=== PATIENT | female | born 2000 | race Caucasian/White ===

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

== ENCOUNTER 2022-04-23 12:33 | Emergency (ER) | payer BC ==
--- OUTSIDE RECORDS SUMMARY | 2022-04-23 12:36 | XMS REPORT | Continuity of Care Document ---
:2000 Author Organization [facility] t Address [address] [place] [address] Care Team Providers Name Role Phone CARRIE MIRANDA Primary Care Physician Unavailable CARRIE MIRANDA Attending Clinician Unavailable Carrie Miranda PA-C Attending Clinician Doctor Unassigned, [place] Attending Clinician Unavailable BHARATHI JOHNSON Attending Clinician Unavailable DANIELITO HUERTAS Attending Clinician Unavailable Danielito Keys Attending Clinician Unknown, Attending Attending Clinician Unavailable Bharathi Teran Attending Clinician Shellie Montilla Attending Clinician Shellie DE PAZ Attending Clinician Unavailable Annetta Bhatia Attending Clinician ANNETTA HOANG Attending Clinician Unavailable Pcp, Patient Does Not Have A Attending Clinician [phone] RICK LANDRY Attending Clinician Unavailable Lab, Adc Fam Pob I Attending Clinician Unavailable Jayleen Barrera Attending Clinician Lenora Huang RN Attending Clinician Unavailable MERY BAJWA Attending Clinician Unavailable Mery Villarreal Attending Clinician Shellie DE PAZ Admitting Clinician Unavailable Payers Payer Name Policy Type Policy Number Effective Date Expiration Date Shayan deluna [employer] [place] [id number] 2021 00:00:00 Problems Condition Condition Condition Status Onset Resolution Last Treating Co mments Source Name Details Category Date Date Treatment Clinician Date Dysuria Dysuria Disease Active 2021-0 Univers 24 ity of 00:00: [place] 00 [facility] Branch LGSIL on LGSIL on Disease Active 2019-03 Overview: Un lashell Pap smear Pap smear 03-23 [place] i ty of of cervix of cervix 00:00: [place] of this [place] 00 note Medical might be Branch different from the original. LGSIL 2019, ASCUS 2020, repeat pap smear in 2021 Other Other Disease Active 2019-03 [facility] general general 03-13 [place]y of counseling [place] and advice and advice 00 Me dical for for Branch contracept contracept edenilson edenilson management management Allergies, Adverse Reactions, Alerts Allergy Allergy Status Severity Reaction(s) Onset Inactive Treating Comm ents Source Name Type Date Date Clinician NO KNOWN Drug Active Univers ALLERGIE Class ity of S [facility] Social History Social Habit Start Date Stop Date Quantity Comments Source History of Cigarette Smoker Universi ty of tobacco use [facility] Exposure to 2022-03-28 2022-04-07 Not sure [facility] SARS-CoV-2 00:00:00 14:05:00 [facility] (event) [place] Alcohol intake 2021-12-20 2021-12-20 Ex-drinker University 00:00:00 00:00:00 (finding) [facility] Tobacco use and 2021-12-11 2021-12-11 Smokeless tobacco Un iversity of exposure 00:00:00 00:00:00 non-user [facility] Tobacco Comment 2021-12-11 2021-12-11 dips Universit y of 00:00:00 00:00:00 [facility] History SDOH 2020-01-12 2020-01-12 99 University o f Alcohol Frequency 00:00:00 00:00:00 [place] [facility] History SDOH 2020-01-12 2020-01-12 99 University o f Alcohol Std 00:00:00 00:00:00 [place] [facility] Dr[facility] History SDMD 2020-01-12 2020-01-12 99 [place] f Alcohol Binge 00:00:00 00:00:00 [facility] Alcohol Comment 2020-01-12 2020-01-12 socially Universit y of 00:00:00 00:00:00 [facility] Sex Assigned At [birth year] Universit y of 00:00:00 00:00:00 [facility] Smoking Status Start Date Stop Date Source Unknown if ever smoked General acute hospital Ex-smoker 2021-12-11 00:00:00 2021-12-11 00:00:00 [facility] Medications Ordered Filled Start Stop Current Ordering Indication Dosage Frequency Signature Comments Components Source Medication Medication Date Date Medication? Clinician (SIG) Name Name QUEtiapine Yes Take by [facility] 150 mg Tab 2-07 mouth. ity of 14:23: [address] Lamotrigine Yes Take by Uni vers (SUBVENITE 2-07 mouth. ity of STARTER, 14:23: [place] WHI Solution, 25 Medical KIT) 25 mg Branch (42) -100 mg (7) DsPk QUEtiapine Yes Take by [employer] [facility] 150 mg Tab 2-07 mouth. ity of 14:23: [address] Lamotrigine Yes Take by Uni vers (SUBVENITE 2-07 mouth. ity of STARTER, 14:23: [place] WHI Solution, 25 Medical KIT) 25 mg Branch (42) -100 mg (7) DsPk azithromyci 2021-03 Yes [id number] 250mg Z-[place] = Univers n 0-22 500 mg day ity of (ZITHROMAX) 00:00: 1, then Sam as 250 mg 00 250 mg Medical tablet days 2 to Branch 5. methylPREDN 2021-03 Yes [id number] Take by [facility] ISolone 0-22 mouth ity of (MEDROL, 00:00: SEE-INSTRU Sam as TROY,) 4 mg 00 CTIONS. Medica l tablets follow Branch package directions azithromyci 2021-03 Yes [id number] 250mg [place] = Univers n 0-22 500 mg day ity of (ZITHROMAX) 00:00: 1, then Sam as 250 mg 00 250 mg Medical tablet days 2 to Branch 5. methylPREDN 2021-03 Yes [id number] Take by Univers ISolone 0-22 mouth ity of (MEDROL, 00:00: SEE-INSTRU Sam as TROY,) 4 mg 00 CTIONS. Medica l tablets follow Branch package directions azithromyci 2021-03 Yes [id number] 250mg [place] = Univers n 0-22 500 mg day ity of (ZITHROMAX) 00:00: 1, then Sam as 250 mg 00 250 mg Medical tablet days 2 to Branch 5. methylPREDN 2021-03 Yes [id number] Take by Univers ISolone 0-22 mouth ity of (MEDROL, 00:00: SEE-INSTRU Sam as TROY,) 4 mg 00 CTIONS. Medica l tablets follow Branch package directions azithromyci 2021-03 Yes [id number] 250mg [place] = Univers n 0-22 500 mg day ity of (ZITHROMAX) 00:00: 1, then Sam as 250 mg 00 250 mg Medical tablet days 2 to Branch 5. methylPREDN 2021-03 Yes [id number] Take by Univers ISolone 0-22 mouth ity of (MEDROL, 00:00: SEE-INSTRU Sam as TROY,) 4 mg 00 CTIONS. Medica l tablets follow Branch package directions LOESTRIN FE 2021-03 Yes [id number] 1{tbl} Take 1 Univers 1 mg-20 mcg 0-13 tablet by ity of (21)/75 mg 00:00: mouth in Sam as (7) tablet 00 the Medical morning. [place] LOESTRIN FE 2021-03 Yes [id number] 1{tbl} Take 1 Univers 1 mg-20 mcg 0-13 tablet by ity of (21)/75 mg 00:00: mouth in Sam as (7) tablet 00 the Medical morning. [place] LOESTRIN FE 2021-03 Yes [id number] 1{tbl} Take 1 Univers 1 mg-20 mcg 0-13 tablet by ity of (21)/75 mg 00:00: mouth in Sam as (7) tablet 00 the Medical morning. [place] LOESTRIN FE 2021-03 Yes [id number] 1{tbl} Take 1 Univers 1 mg-20 mcg 0-13 tablet by ity of (21)/75 mg 00:00: mouth in Sam as (7) tablet 00 the Medical morning. Branch LOESTRIN FE 2021- Yes [id number] 1{tbl} Take 1 Univers 1 mg-20 mcg 0-13 tablet by ity of (21)/75 mg 00:00: mouth in Sam as (7) tablet 00 the Medical morning. Branch LOESTRIN FE 2021- Yes [id number] 1{tbl} Take 1 Univers 1 mg-20 mcg 0-13 tablet by ity of (21)/75 mg 00:00: mouth in Sam as (7) tablet 00 the Medical morning. Branch LOESTRIN FE 2021-03 Yes [id number] 1{tbl} Take 1 Univers 1 mg-20 mcg 0-13 tablet by ity of (21)/75 mg 00:00: mouth in Sam as (7) tablet 00 the Medical morning. Branch ibuprofen 2021-0 Yes [id number] 600mg Take 1 Univers 600 mg 1-31 tablet by ity of tablet 00:00: mouth [place] 00 every 6 Medical (six) Branch hours as needed for Pain (scale 4-6). ibuprofen 2-0 Yes [id number] 600mg Take 1 Univers 600 mg 1-31 tablet by ity of tablet 00:00: mouth [place] 00 every 6 Medical (six) Branch hours as needed for Pain (scale 4-6). ibuprofen 2022-0 Yes [id number] 600mg Take 1 Univers 600 mg 1-31 tablet by ity of tablet 00:00: mouth [place] 00 every 6 Medical (six) Branch hours as needed for Pain (scale 4-6). ibuprofen 2022-0 Yes [id number] 600mg Take 1 Univers 600 mg 1-31 tablet by ity of tablet 00:00: mouth [place] 00 every 6 Medical (six) Branch hours as needed for Pain (scale 4-6). ibuprofen 2022-0 Yes [id number] 600mg Take 1 Univers 600 mg 1-31 tablet by ity of tablet 00:00: mouth [place] 00 every 6 Medical (six) Branch hours as needed for Pain (scale 4-6). ibuprofen 2022-0 Yes [id number] 600mg Take 1 Univers 600 mg 1-31 tablet by ity of tablet 00:00: mouth [place] 00 every 6 Medical (six) Branch hours as needed for Pain (scale 4-6). ibuprofen 2021-0 Yes [id number] 600mg Take 1 Univers 600 mg 1-31 tablet by ity of tablet 00:00: mouth [place] 00 every 6 Medical (six) Branch hours as needed for Pain (scale 4-6). ibuprofen 2021-0 Yes [id number] 600mg Take 1 Univers 600 mg 1-31 tablet by ity of tablet 00:00: mouth [place] 00 every 6 Medical (six) Branch hours as needed for Pain (scale 4-6). ibuprofen 2021-0 Yes [id number] 600mg Take 1 Univers 600 mg 1-31 tablet by ity of tablet 00:00: mouth [place] 00 every 6 Medical (six) Branch hours as needed for Pain (scale 4-6). Vital Signs Vital Name Observation Time Observation Value Comments Source Systolic blood 2022-04-07 20:19:00 112 mm[Hg] Univer sity of [facility] Diastolic blood 2022-04-07 20:19:00 72 mm[Hg] [facility] Heart rate 2022-04-07 20:19:00 101 /min [facility] Body temperature 2022-04-07 20:19:00 36.67 Zara [facility] Respiratory rate 2022-04-07 20:19:00 18 /min [facility] Body height 2022-04-07 20:19:00 157.5 cm [facility] Body weight 2022-04-07 20:19:00 53.524 kg [facility] BMI 2022-04-07 20:19:00 21.58 kg/m2 [facility] Systolic blood 2021-12-20 21:34:00 129 mm[Hg] Univer sity [facility] Diastolic blood 2021-12-20 21:34:00 88 mm[Hg] Unive rsity [facility] Heart rate 2021-12-20 21:34:00 89 /min [facility] Body temperature 2021-12-20 21:34:00 37 Zara [facility] Respiratory rate 2021-12-20 21:34:00 16 /min [facility] Body height 2021-12-20 21:34:00 158.8 cm Universi ty [facility] [place] [facility] Body weight 2021-12-20 21:34:00 51.909 kg Universi ty [facility] [place] [facility] BMI 2021-12-20 21:34:00 20.60 kg/m2 Universi ty [facility] [place] [facility] Oxygen saturation in 2021-12-20 21:34:00 97 /min University of Arterial blood by [facility] Pulse oximetry Branch Systolic blood 2021-12-11 19:56:00 90 mm[Hg] Univer sity of pressure [place] [facility] Diastolic blood 2021-12-11 19:56:00 57 mm[Hg] Unive rsity of pressure [place] [facility] Heart rate 2021-12-11 19:56:00 67 /min Universi ty of [facility] Body temperature 2021-12-11 19:56:00 36.67 Zara Univ ersity of [facility] Branch Respiratory rate 2021-12-11 19:56:00 18 /min Univ ersity of [place] [facility] [place] Body height 2021-12-11 19:56:00 157.5 cm Universi ty [facility] [place] [facility] Body weight 2021-12-11 19:56:00 52.164 kg Universi ty [facility] [place] [facility] BMI 2021-12-11 19:56:00 21.03 kg/m2 Universi ty [facility] [place] [facility] Systolic blood 2021-07-22 18:30:00 107 mm[Hg] Univer sity of pressure [place] [facility] Diastolic blood 2021-07-22 18:30:00 70 mm[Hg] Unive rsity of pressure [place] [facility] Heart rate 2021-07-22 18:30:00 77 /min Universi ty [facility] [place] [facility] Body temperature 2021-07-22 18:30:00 36.83 Zara Univ ersity of [place] [facility] Respiratory rate 2021-07-22 18:30:00 18 /min Univ ersity of [place] [facility] Body height 2021-07-22 18:30:00 160 cm Universi ty [facility] [place] [facility] Body weight 2021-07-22 18:30:00 52.073 kg [facility]i ty [facility] [place] [facility] BMI 2021-07-22 18:30:00 20.34 kg/m2 [facility]i [facility] [place] [facility] Procedures Procedure Date / Time Performing Clinician Source Performed POCT TEST 2022-04-07 20:33:00 Carrie Miranda [facility] ASSIGNMENT OF BENEFITS 2022-04-07 20:04:47 Doctor Unassigned, No [facility] POCT MOLECULAR STREP 2021-12-20 21:40:00 Unknown, Attending [facility] CONSENT FOR 2021-12-11 05:01:00 Doctor Unassigned, No [facility] CONTRACEPTION [facility] POCT URINALYSIS W/O 2021-07-22 00:00:00 Bharathi Johnson [facility] SPECIFIC [facility] PATIENT QUESTIONNAIRE 2019-11-01 05:01:00 Doctor Unassigned, No [facility] Encounters Start End Encounter Admission Attending Care Care Encounter Source Date/Time Date/Time Type Type Clinicians Facility Department ID 2022-04-07 2022-04-07 Outpatient Nima MIRANDA [facility] [id number] Univers 14:00:00 14:44:41 CARRIE [facility] 2022-04-07 2022-04-07 Office Ruben DEAURE [id number] Univers 14:00:00 14:44:41 Visit Carrie VELASCO [id number] i [facility] [id number] PROF[place] [phone] Mn dical [address] 2022-04-07 2022-04-07 Orders Doctor CHAVEZ [id number] Univers 00:00:00 00:00:00 Only Unassigned, JANETH [id number] ity [facility] [id number] [place] as [phone] [address] 2022-03-19 2022-03-19 Outpatient Nima MIRANDA [facility] [id number] Univers 13:30:00 13:30:00 CARRIE fournier [facility] 2022-01-15 2022-01-15 Outpatient Nima MIRANDA [facility] [id number] Univers 13:00:00 13:00:00 CARRIE fournier [facility] 2021-12-20 2021-12-20 Outpatient R ALEKSANDAR [facility] [id number] Univers 16:20:00 17:08:38 DANIELITO shantanu [facility] 2021-12-20 2021-12-20 Urgent Danielito Huertas [facility] [id number] Univers 16:20:00 17:08:38 Care Unknown, Attending HEALTH [id number] ity [facility] [id number] Sam as JANIS?BLEA [phone] Mn dical KNEY [address] [place] MEDICAL OFFICE [facility] 2021-12-11 2021-12-11 Outpatient R RUBEN [facility] [id number] Univers 14:30:00 15:40:48 CARRIE fournier [facility] 2021-12-11 2021-12-11 [facility] [id number] Univers 14:30:00 15:40:48 Visit Carrie VELASCO [id number] i ty [facility] [id number] [phone] Mn dical NAL 134 [facility] 2021-12-11 2021-12-11 Orders Doctor KATHY [id number] Univers 00:00:00 00:00:00 Only Unassigned, JANETH [id number] ity of [place] [facility] [id number] Sam as [phone] [address] 2021-07-22 2021-07-22 Outpatient R ELIZABETH [facility] [id number] Univers 13:15:00 13:51:52 BHARATHI vallejoy o f [facility] 2021-07-22 2021-07-22 Office [facility] [id number] Univers 13:15:00 13:51:52 Visit Bharathi Herring [employer] [id number] ity [facility] [id number] Sam as MATERNAL [phone] Med ical & CHILD [address] [place] [address] 2021-06-16 2021-06-16 Outpatient R ELIZABETH [facility] [id number] Univers 09:00:00 09:42:47 BHARATHI ity o f [facility] 2021-06-16 2021-06-16 Office [facility] [id number] Univers 09:00:00 09:42:47 Visit Bharathi Herring [employer] [id number] ity of [facility] [id number] Sam as MATERNAL [phone] [facility] & [address] 2021-03-31 2021-03-31 Emergency Shellie De Paz [facility] [id number] Univers 16:39:00 17:55:00 [facility] [id number] i ty [facility] 4.2.7.2.686 [facility] [phone] [address] 2021-03-31 2021-03-31 Emergency X Shellie DE PAZ [facility] ERT [id number] Univers 16:39:00 17:55:00 ity of [facility] 2021-01-28 2021-01-28 Telephone [facility] [id number] Univers 00:00:00 00:00:00 Annetta Das [employer] [id number] it y of [facility] 4.2.7.2.686 Sam as MATERNAL [phone] [address] 2021-01-20 2021-01-20 Outpatient R VIKTOR [facility] [id number] Univers 14:30:00 15:01:16 ANNETTA fournier [facility] 2021-01-20 2021-01-20 Office [facility] [id number] Univers 14:24:05 15:01:16 Visit Annetta Das [employer] [id number] it y of [facility] 4.2.7.2.686 Sam as MATERNAL [phone] [address] 2021-01-20 2021-01-20 [facility] [id number] Univers 14:30:00 14:30:00 ANNETTA fournier [facility] 2021-01-20 2021-01-20 Outpatient R VIKTOR [facility] [id number] Univers 14:30:00 14:30:00 ANNETTA fournier [facility] 2021-01-17 2021-01-17 Outpatient R VIKTOR [facility] [id number] Univers 09:30:00 09:30:00 ANNETTA fournier [facility] 2021-01-13 2021-01-13 Office [facility] [id number] Univers 13:54:06 14:33:28 Visit Annetta Das [employer] [id number] it y of REGIONAL [id number] Sam as MATERNAL [phone] [facility] ical & CHILD [address] [place] [address] 2021-01-13 2021-01-13 Outpatient R VIKTOR [facility] [id number] Univers 13:45:00 14:33:28 ANNETTA fournier [facility] 2021-01-13 2021-01-13 [facility] [id number] Univers 13:45:00 14:33:28 ANNETTA fournier [facility] 2021-01-13 2021-01-13 Outpatient R VIKTOR [facility] [id number] Univers 13:45:00 13:45:00 ANNETTA fournier [facility] 2021-01-13 2021-01-13 Orders Doctor KATHY [id number] Univers 00:00:00 00:00:00 Only Unassigned, JANETH [id number] ity of [place] [facility] [id number] Sam as [phone] [address] 2020-11-28 2020-11-28 Telephone [facility] [id number] Univers 00:00:00 00:00:00 Patient [employer]EL[employer] [id number] it y of Does Not [place].2.[place] MATERNAL [phone] [facility] ical & CHILD [address] [place] [address] 2020-01-12 2020-01-12 Outpatient R FRANTZ [facility] [id number] Univers 14:30:00 14:30:00 RICK ity o f [facility] 2019-11-02 2019-11-02 Laboratory Lab, [facility] 1.2. [id number] [id number] Univers 14:42:36 14:57:36 Only Jayleen [facility] [id number] ity of [place] 4.2.7.2.686 Sam as Professio [phone] [address] Office [facility] 2019-11-02 2019-11-02 Outpatient R [facility] [id number] Univers 14:30:00 14:30:00 ity of [facility] 2019-11-01 2019-11-01 Orders Doctor KATHY 1.2.840.114 [id number] Univers 00:00:00 00:00:00 Only Unassigned, JANETH 350.1.13.10 ity of [place] [facility]ITAL 4.2.7.2.686 Sam as [phone] [facility] [address] [place] 2019-10-18 2019-10-18 Letter KATHY Huang [id number] Univers 00:00:00 00:00:00 (Out) Lenora Chelsie JANETH 350.1.13.10 it y of HOSPITAL 4.2.7.2.686 Sam as [phone] [facility] 019 [place] 2019-10-17 2019-10-17 Outpatient R STEVEDUYENYousif [facility] [id number] Univers 11:40:00 11:40:00 MERY ity of [facility] 2019-10-17 2019-10-17 Laboratory Lab, [facility] 1.2. [id number] Univers 10:47:14 11:07:14 Only Mery [facility] [id number] ity of [place] 4.2.7.2.686 Sam as Professio [phone] Mn dical [address] 2019-10-17 2019-10-17 Letter Doctor CHAVEZ [id number] Univers 00:00:00 00:00:00 (Out) Unassigned, JANETH 350.1.13.10 ity of [place] [facility]PITAL 4.2.7.2.686 Sam as [phone] [address] Results Test Description Test Time Test Comments Results Result Comments Source POCT TEST 2022-04-07 20:33:00 Test Item Value Reference Range Interpretation Comme nts POCT PREG (test code = 1605) Negative On board controls acceptable with C Line (test code = 3574) Yes POCT PREG LOT # (test code = 3575) POCT PREG TEST DATE (test code = 3576) [facility] [id number] 20:33:00 Test Item Value Reference Range Interpretation Comments POCT PREG (test code = 1605) Negative On board controls acceptable with C Yes Line (test code = 3574) POCT PREG LOT # (test code = 3575) POCT PREG TEST DATE (test code = 3576) [facility] MOLECULAR [id number] 21:47:53 Test Item Value Reference Range Interpretation Comments POCT Molecular Strep (test code = Negative Negative 90451-3) Lab Interpretation (test code = Normal 85991-1) [facility] URINALYSIS W/O SPECIFIC [id number] 18:36:00 Test Item Value Reference Range Interpretation Comments POCT PH U (test code = 3254) 8 mg/dl 5-8 POCT U LEUK EST (test code = 2+ Negative - Negative 3263) POCT U NIT (test code = 3262) negative Negative - Negative POCT U PROT (test code = 3259) trace Negative - Negative POCT U GLU (test code = 3256) negative Negative - Negative POCT U KETONE (test code = 3258) negative Negative - Negative POCT U BLD (test code = 3257) Negative - Negative [facility] URINALYSIS W/O SPECIFIC [id number] 18:36:00 Test Item Value Reference Range Interpretation Comments POCT PH U (test code = 3254) 8 mg/dl 5-8 POCT U LEUK EST (test code = 2+ Negative - Negative 3263) POCT U NIT (test code = 3262) negative Negative - Negative POCT U PROT (test code = 3259) trace Negative - Negative POCT U GLU (test code = 3256) negative Negative - Negative POCT U KETONE (test code = 3258) negative Negative - Negative POCT U BLD (test code = 3257) Negative - Negative [facility]
[2022-04-23 13:12] LABS: Urine Blood 2+ (Negative); Urine Glucose Negative (Negative); Urine Protein Negative (Negative); Urine Specific Gravity 1.025 (1.005-1.030)
[2022-04-23 13:21] LABS: Urine Specific Gravity/Preg 1.025 (1.005-1.030)
[2022-04-23] MEDS ORDERED: ACETAMINOPHEN 500 MG TAB ONE (13:30)
[2022-04-23 13:31] LABS: Absolute Lymphocytes (CBC) 1.6 K/uL (0.7-4.9); Hematocrit 35.7 % (36.0-45.0); Lymphocytes % 19.1 % (15.3-44.8); MCV 87.1 fL (80-100); MPV 7.5 fL (7.6-11.3)
[2022-04-23 14:17] LABS: Albumin 3.5 g/dL (3.4-5.0); Bilirubin Total 0.5 mg/dL (0.2-1.0); Protein, Total 7.1 g/dL (6.4-8.2)
--- NOTE | 2022-04-23 14:36 | RAD REPORT ---
EXAM DESCRIPTION: US - TRANSVAG OB - 04/23/2022 2:07 pm CLINICAL HISTORY: pelvic pain, (+) upt COMPARISON: No comparisons FINDINGS: No normal IUP identified. The endometrial echo complex measures 4 millimeters. The uterus measures 6.4 cm in long axis. Echogenic structure in the left adnexa measuring 1.8 x 1.3 cm. This is separate from the left ovary. Small volume of complex fluid also present in the left adnexa which could represent blood products. The right ovary measures 3.3 x 2.5 x 2.3 cm with volume of 10.1 cc. The left ovary measures 2.9 x 1.5 x 1.5 cm with volume of 3.5 cc. Bilateral ovarian blood flow is present. Sign for IMPRESSION: 1. Indeterminate structure in the left adnexa which is separate from the left ovary. Thi s could represent an ectopic . No normal IUP identified. Small volume of complex free fluid in the left adnexa which may represent blood products. Recommend gynecologic consultation. 2. Bilateral ovarian blood flow.
[2022-04-23] MEDS ORDERED: NA CHLORIDE 0.9% 1,000 ML ONE (15:01)
--- NOTE | 2022-04-23 15:13 | ER ---
Nurse's Notes [facility] Name: Thalia Moulton Age: 21 yrs Sex: Female : 2000 Arrival Date: 04/23/2022 Time: 12:34 Bed 10 Private MD: Diagnosis: Ectopic Presentation: 04/23 12:41 Chief complaint: Patient states: LLQ pain since 11 am today, vaginal bleeding just [employer] INSPECT[employer], iw felt a piercing pain and she pushed on her abdomen and noticed blood, had a period a week ago. Coronavirus screen: At this time, the client does not indicate any symptoms associated with coronavirus-19. Ebola Screen: Patient negative for fever greater than or equal to 101.5 degrees Fahrenheit, and additional compatible Ebola Virus Disease symptoms Patient denies exposure to infectious person. Patient denies travel to an Ebola-affected area in the 21 days before illness onset. No symptoms or risks identified at this time. Initial Sepsis Screen: Does the patient meet any 2 criteria? No. Patient's initial sepsis screen is negative. Does the patient have a suspected source of infection? No. Patient's initial sepsis screen is negative. Risk Assessment: Do you want to hurt yourself or someone else? Patient reports no desire to harm self or others. Onset of symptoms was April 23, 2022. 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 - Social history:: Smoking status: Reported history of juuling and/or vaping. Screenin:00 [facility] ED Fall Risk Assessment (Adult) History of falling in the last 3 months, mb9 including since admission No falls in past 3 months (0 pts) Confusion or Disorientation No (0 pts) Intoxicated or Sedated No (0 pts) Impaired Gait No (0 pts) Mobility Assist Device Used No (0 pt) Altered Elimination No (0 pt) Score/Fall Risk Level 0 - 2 = Low Risk Oriented to surroundings, Maintained a safe environment, Educated pt \T\ family on fall prevention, incl call for assistance when getting out of bed. Abuse screen: Denies threats or abuse. Nutritional screening: No deficits noted. Tuberculosis screening: No symptoms or risk factors identified. Assessment: 13:28 General: Appears uncomfortable, Behavior is cooperative. Pain: Complains of pain in LLQ mb9 Pain currently is 8 out of 10 on a pain scale. Quality of pain is described as shooting, stabbing. Pain: Pain began suddenly. Neuro: Level of Consciousness is awake, alert, obeys commands, Oriented to person, place, time, situation, Appropriate for age. Respiratory: Airway is patent Respiratory effort is even, unlabored, Respiratory pattern is regular, symmetrical. GI: Abdomen is flat, non-distended, Bowel sounds present X 4 quads. Abd is soft Abdomen is tender to palpation in left lower quadrant. : Reports vaginal bleeding that is bright red, spotty. Derm: Skin is pink, warm \T\ dry. Musculoskeletal: Range of motion: intact in all extremities. 14:35 Reassessment: No changes from previously documented assessment. Patient and/or family mb9 updated on plan of care and expected duration. Pain level reassessed. Patient is alert, oriented x 3, equal unlabored respirations, skin warm/dry/pink. 15:30 Reassessment: gave report to transferring nurse CRISTHIAN Cabrera. mb9 15:56 Reassessment: Gave report to [facility]. mb9 Vital Signs: 12:41 BP 123 / 80; Pulse 88; Resp 16; Temp 99.1; Pulse Ox 96% on R/A; Weight 53.52 kg; Height iw 5 ft. 2 in. (157.48 cm); Pain 10/10; 13:29 BP 105 / 89; Pulse 98; Resp 16; Pulse Ox 100% on R/A; mb9 15:04 BP 131 / 83; Pulse 85; Resp 18; Pulse Ox 100% ; mb9 15:32 BP 121 / 70; Pulse 88; Resp 16; Pulse Ox 100% on R/A; mb9 12:41 Body Mass Index 21.58 (53.52 kg, 157.48 cm) ED Course: 12:34 Patient arrived in ED. am2 12:34 Master Hough PA is PHCP. [facility] 12:34 Harrison Dang DO is Attending Physician. [facility] 12:42 Triage completed. iw 12:43 Arm band placed on. iw 13:00 Placed in gown. Bed in low position. Call light in reach. Side rails up X 1. Client mb9 placed on continuous cardiac and pulse oximetry monitoring. NIBP monitoring applied. 13:00 No provider procedures requiring assistance completed. Inserted saline lock: 20 gauge mb9 in left antecubital area, using aseptic technique. 13:05 Rosi Newberry, RN is Primary Nurse. mb9 15:14 SARS RAPID Sent. mb9 15:57 Patient transferred, IV remains in place. mb9 Administered Medications: 13:12 Not Given (Duplicate Order): morphine 4 mg IVP once over 4 mins m 13:24 Not Given (Patient Refused): Zofran (Ondansetron) 4 mg IVP once; over 2 minutes mb9 13:28 Drug: Acetaminophen 1000 mg Route: PO; mb9 14:03 Follow up: Response: No adverse reaction mb9 15:05 Drug: NS 0.9% 1000 ml Route: IV; Rate: 1000 ml; Site: left antecubital; mb9 Medication: 15:57 VIS not applicable for this client. mb9 Outcome: 15:12 ER care complete, transfer ordered by . [facility] 15:57 Transferred by ground EMS to [facility], Transfer form mb9 completed. 15:57 Condition: stable 15:57 Instructed on the need for transfer. 15:58 Patient left the ED. mb9 Signatures: Master Hough PA PA jmm Williams, Irene, RN RN Lynne Carrasco amRosi Nesbitt, RN RN mb9
--- NOTE | 2022-04-23 15:13 | EDPHYS ---
Physician Documentation [facility] Name: Thalia Moulton Age: 21 yrs Sex: Female : 2000 Arrival Date: 04/23/2022 Time: 12:34 Bed 10 Private MD: ED Physician Harrison Dang HPI: 04/23 12:54 This 21 yrs old Female presents to ER via Ambulatory with complaints of Abdominal Pain jmm - LLQ, Vaginal Bleeding. 12:54 The patient presents with abdominal pain. Onset: The symptoms/episode began/occurred jmm acutely, at 11:00. The symptoms do not radiate. Associated signs and symptoms: Pertinent negatives: fever. The symptoms are described as achy. Modifying factors: The symptoms are alleviated by nothing, the symptoms are aggravated by nothing. Is a 21-year-old female with history of depression that presents emerged part with complaints of left-sided pelvic pain beginning acutely around 11 AM today. Denies vomiting or diarrhea.. 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 - Social history:: Smoking status: Reported history of juuling and/or vaping. ROS: 12:54 Constitutional: Negative for fever, chills, and weight loss, Cardiovascular: Negative jmm for chest pain, palpitations, and edema, Respiratory: Negative for shortness of breath, cough, wheezing, and pleuritic chest pain. 12:54 Abdomen/GI: Positive for abdominal pain. 12:54 : Positive for pelvic pain. 12:54 All other systems are negative. Exam: 12:54 Constitutional: This is a well developed, well nourished patient who is awake, alert, jmm and in no acute distress. Head/Face: atraumatic. Eyes: EOMI, no conjunctival erythema appreciated ENT: Moist Mucus Membranes Neck: Trachea midline, Supple Chest/axilla: Normal chest wall appearance and motion. Cardiovascular: Regular rate and rhythm. No edema appreciated Respiratory: Normal respirations, no respiratory distress appreciated Abdomen/GI: Non distended Back: Normal ROM 12:54 Skin: General appearance color normal MS/ Extremity: Moves all extremities, no obvious deformities appreciated, no edema noted to the lower extremities Neuro: Awake and alert Psych: Behavior is normal, Mood is normal, Patient is cooperative and pleasant 12:54 Abdomen/GI: Inspection: abdomen appears normal, Palpation: soft, mild abdominal tenderness, in the suprapubic area and left lower quadrant. Vital Signs: 12:41 BP 123 / 80; Pulse 88; Resp 16; Temp 99.1; Pulse Ox 96% on R/A; Weight 53.52 kg; Height iw 5 ft. 2 in. (157.48 cm); Pain 10/10; 13:29 BP 105 / 89; Pulse 98; Resp 16; Pulse Ox 100% on R/A; mb9 15:04 BP 131 / 83; Pulse 85; Resp 18; Pulse Ox 100% ; mb9 15:32 BP 121 / 70; Pulse 88; Resp 16; Pulse Ox 100% on R/A; mb9 12:41 Body Mass Index 21.58 (53.52 kg, 157.48 cm) iw MDM: 12:54 Patient medically screened. [facility] 15:10 Differential diagnosis: non-specific abd pain, Ovarian Torsion, Pelvic Inflammatory jmm Disease, Pyelonephritis, Tubal Ovarian Abcess, Ureterolithiasis, Ectopic . Data reviewed: vital signs, nurses notes, lab test result(s), radiologic studies, ultrasound. Management of patient was discussed with the following: Dr. Rodriguez. I considered the following discharge prescriptions or medication management in the emergency department Medications were administered in the Emergency Department. See MAR. Test considered but Not performed: CT: Positive urine . Counseling: I had a detailed discussion with the patient and/or guardian regarding: the historical points, exam findings, and any diagnostic results supporting the discharge/admit diagnosis, lab results, the need to transfer to another facility. ED course: I discussed the patient with Dr. Rodriguez, [employer] whom accepted the patient to her service for transfer. 04/23 12:54 Order name: CBC with Diff [facility] 04/23 12:54 Order name: CMP [facility] 04/23 12:54 Order name: Lipase [facility] 04/23 13:12 Order name: Urine Dipstick-Ancillary; Complete Time: 14:17 [facility] 04/23 13:13 Order name: Quantitative Hcg [facility] 04/23 13:13 Order name: Rh Type [facility] 04/23 13:13 Order name: Abo/rh Typing [facility] 04/23 13:13 Order name: Urine --Ancillary (enter results) em1 04/23 13:22 Order name: Urine --Ancillary; Complete Time: 14:17 [facility] 04/23 13:32 Order name: CBC with Automated Diff; Complete Time: 14:17 [facility] 04/23 13:48 Order name: HCG, Quantitative; Complete Time: 14:17 [facility] 04/23 14:17 Order name: Comprehensive Metabolic Panel; Complete Time: 14:46 [facility] 04/23 14:17 Order name: Lipase; Complete Time: 14:46 [facility] 04/23 15:08 Order name: SARS RAPID [facility] 04/23 12:54 Order name: IV Saline Lock; Complete Time: 13:24 [facility] 04/23 12:54 Order name: Labs collected and sent; Complete Time: 13:24 [facility] 04/23 12:54 Order name: Urine Dipstick-Ancillary (obtain specimen); Complete Time: 13:11 [facility] 04/23 12:54 Order name: Urine Test (obtain specimen); Complete Time: 13:11 [facility] 04/23 13:44 Order name: US 1st Trimest Single 1st Fetus [facility] 04/23 14:37 Order name: US; Complete Time: 14:46 [facility] 04/23 15:11 Order name: ABO/RH typing; Complete Time: 15:41 [facility] 04/23 15:43 Order name: SARS-COV-2 Antigen Rapid; Complete Time: 18:43 EDMS Administered Medications: 13:12 Not Given (Duplicate Order): morphine 4 mg IVP once over 4 mins [facility] 13:24 Not Given (Patient Refused): Zofran (Ondansetron) 4 mg IVP once; over 2 minutes mb9 13:28 Drug: Acetaminophen 1000 mg Route: PO; mb9 14:03 Follow up: Response: No adverse reaction mb9 15:05 Drug: NS 0.9% 1000 ml Route: IV; Rate: 1000 ml; Site: left antecubital; mb9 Disposition: 14:58 Co-signature as Attending Physician, Harrison Dang DO I reviewed the patient's care ms3 provided by Advanced Practice Provider \T\ agree w/ the diagnosis \T\ care plan. I personally saw the pt \T\ performed a substantive portion of the visit, incldng all aspects of the (History/Exam/Medical Decision Making). PA/REFUELER's history reviewed, patient interviewed, and examined. HPI: 21-year-old female with past medical history of depression and anxiety presents for left lower quadrant abdominal pain that began at 11:30 AM My personal exam of patient reveals: On exam patient is alert and oriented x4, in no apparent distress, nontoxic-appearing. Heart rate and rhythm are regular without murmurs rubs or gallops. Lungs clear to auscultation bilaterally. Abdomen significant for mild left lower quadrant abdominal tenderness, bowel sounds are present. Skin is dry, pink, and without rashes. I agree with assessment and care plan and confirm the diagnosis (es) above. 18:43 Co-signature as Attending Physician, Harrison Dang DO. ms3 Disposition Summary: 04/23/22 15:12 Transfer Ordered Transfer Location: [facility] Reason: Higher level of care jmm Condition: Stable jmm Problem: new jmm Symptoms: are unchanged jmm Accepting Physician: Dr. Rodriguez(04/23/22 15:58) mb9 Diagnosis - Ectopic jmm Forms: - Medication Reconciliation Form jmm - SBAR form jmm Signatures: Dispatcher [employer] Master Bradley PA PA jmm Williams, Irene, RN RN iw Sims, Marcus, DO DO ms3 Rosi Newberry RN RN mb9 Corrections: (The following items were deleted from the chart) 15:58 15:12 Dr. Michael chavez mb9
[2022-04-23 15:43] LABS: SARS-CoV-2 Antigen Rapid Res Negative (Negative)
[2022-04-23 16:06] VITALS: TEMP 99.1
[2022-04-23 16:07] VITALS: O2SAT 100
[2022-04-23 16:09] VITALS: BP 121/70
== END 2022-04-23 15:58 | disposition short-term general hospital (02) ==
LOC: ER 12:33
DX: O00.90 Unspecified ectopic pregnancy without intrauterine pregnancy (principal); F32.A Depression, unspecified; Z20.822 Contact with and (suspected) exposure to COVID-19; Z91.018 Allergy to other foods
CPT/HCPCS: 85025; 36415; 86900; 81025; 86901; 84702; 81003; 83690; 80053; 76813; 99285; 87811; J7030